=== PATIENT | female | born 1940 | race Caucasian/White ===

== ENCOUNTER 2019-06-15 09:01 | Day surgery (SDC) | payer BC, OTHER ==
[2019-06-14 12:52] VITALS: BMI 19.2
[~2019-06-15 09:01] MED LIST: ACETAMINOPHEN 325 MG TABLET (FP) PO PRN
[2019-06-15] MEDS ORDERED: OFLOXACIN 0.3% OPHTHALMIC SOLUTION 5 ML BOTTLE ONE (09:40)
[2019-06-15] MEDS ORDERED: CYCLOPENTOLATE HCL 1% OPHTH SOLN 2 ML BOTTLE ONE (09:40)
[2019-06-15] MEDS ORDERED: KETOROLAC TROMETHAMINE 0.5% EYE DROP 1 DROP DROPS ONE (09:41)
[2019-06-15] MEDS ORDERED: PHENYLEPHRINE 2.5% OPHTH SOLN 15 ML BOTTLE ONE (09:41)
[2019-06-15] MEDS ORDERED: TROPICAMIDE 1% OPHTH SOLN 15 ML BOTTLE ONE (09:41)
[2019-06-15] MEDS: TROPICAMIDE 1% OPHTH SOLN 15 ML BOTTLE OP SCH ×3 (09:45→10:08)
[2019-06-15] MEDS: KETOROLAC TROMETHAMINE 0.5% EYE DROP 1 DROP DROPS OP SCH ×3 (09:45→10:06)
[2019-06-15] MEDS: CYCLOPENTOLATE HCL 1% OPHTH SOLN 2 ML BOTTLE OP SCH ×3 (09:45→10:06)
[2019-06-15] MEDS: PHENYLEPHRINE 2.5% OPHTH SOLN 15 ML BOTTLE OP SCH ×3 (09:45→10:06)
[2019-06-15] MEDS: OFLOXACIN 0.3% OPHTHALMIC SOLUTION 5 ML BOTTLE OP SCH ×2 (09:45→09:55)
[2019-06-15] MEDS ORDERED: OFLOXACIN 0.3% OPHTHALMIC SOLUTION 5 ML BOTTLE OP ONE (10:06)
[2019-06-15] MEDS ORDERED: EPINEPHrine/PF 1 MG/1 ML (1:1,000) AMPULE ONE (10:41)
[2019-06-15] MEDS ORDERED: LIDOCAINE HCL/PF 1% SDV 5ML VIAL ONE (10:42)
[2019-06-15] MEDS ORDERED: TETRACAINE 0.5% OPHTH SOLN 2 ML BOTTLE ONE (10:42)
[2019-06-15] MEDS ORDERED: TRYPAN BLUE 0.5 ML DISP.SYRIN ONE (10:43)
[2019-06-15] MEDS ORDERED: TETRACAINE 0.5% OPHTH SOLN 2 ML BOTTLE OS ONE (10:56)
[2019-06-15] MEDS ORDERED: POVIDONE-IODINE 5% OPHTHALMIC PREP 30 ML SOLUTION OS ONE (10:57)
[2019-06-15] MEDS ORDERED: MIDAZOLAM HCL 2 MG/2 ML SINGLE DOSE VIAL ONE (10:58)
[2019-06-15] MEDS ORDERED: CHONDROITIN SU A/HYALUR SOD 1 KIT IO ONE (11:06)
[2019-06-15] MEDS ORDERED: LIDOCAINE HCL 1% PRESERVATIVE FREE - 30ML VIAL IO ONE (11:06)
[2019-06-15] MEDS ORDERED: HYALURONATE SODIUM 14 MG/ML DISP.SYRIN IO ONE (11:06)
[2019-06-15] MEDS ORDERED: BSS (NA/CA/MG/K) BALANCED SALT SOLUTION OPHTH SOLN 15 ML BOTTLE OS ONE (11:06)
[2019-06-15] MEDS ORDERED: EPINEPHrine/PF 1 MG/1 ML (1:1,000) AMPULE SQ ONE (11:13)
[2019-06-15] MEDS ORDERED: CHONDROITIN SU A/HYALUR SOD 1 KIT ONE (13:00)
--- NOTE | 2019-06-15 13:38 | OP ---
DATE OF OPERATION: DATE OF DICTATION: 06/15/2019 PREOPERATIVE DIAGNOSIS: Mature cataract, left eye. POSTOPERATIVE DIAGNOSIS: Mature cataract, left eye. PROCEDURE: Phacoemulsification of left cataract with posterior chamber intraocular lens implantation, the lens used [id number], 17.0-diopter power, serial number [id number]. ANESTHESIA: Topical, MAC. COMPLICATIONS: None. PROCEDURE: The patient was brought to the operating room and correctly identified along with the operative site as well as the correct intraocular lens prather. She was then prepped and draped in the usual sterile fashion including 5% Betadine solution in the conjunctival sac and an eyelid drape. An eyelid speculum was then placed into the left eye. A paracentesis port was created. Preservative-free lidocaine 1%, 0.5 mL, was given intracamerally. Viscoelastic was then placed into the anterior chamber and a temporal clear corneal wound was created. A continuous circular capsulorrhexis was performed. The nucleus was then hydrodissected with BSS. The nucleus was then grooved with phacoemulsification. The lens was noted to be dense and a significant amount of energy was required to create a cruciate groove within the cataract. Each piece was then cracked and removed with phacoemulsification employing a [id number] approach as well as horizontal chopping. Care was made to irrigate the phaco tip to try to prevent any wound burn. The pieces were completely removed and cortical material was then irrigated and aspirated from the eye. A small wound burn was noted, however, in the clear corneal wound. Viscoelastic was injected to inflate the capsular bag. The lens was injected into the capsular bag. The wound was stromal irrigated and irrigation-aspiration was performed of the viscoelastic. The anterior chamber was not stable despite trying to repressurize the eye. A single 10-0 nylon suture was placed at the area of the wound burn. The anterior chamber was once again reformed and this time all wounds were tested and found to be watertight. The intraocular lens was noted to be well centered and covered by the anterior capsular border. Topical Vancomycin given, the eye patched and shielded and the patient discharged from the operating room in a stable condition. JOE PRUETT M.D. [id number]
[2019-06-15 14:36] VITALS: TEMP 97.9
[2019-06-15 14:50] VITALS: BP 110/52; PULSE 63
== END 2019-06-15 12:40 | disposition home or self-care (01) ==
LOC: JASU-SURG 09:01
PROVIDERS: ATTEND Ophthalmology
PROC: 08RK3JZ Replacement of Left Lens with Synthetic Substitute, Percutaneous Approach (ICD-10-PCS; principal; 2019-06-15 11:00)
DX: H26.8 Other specified cataract (principal); T26.12XA Burn of cornea and conjunctival sac, left eye, initial encounter; Y92.538 Other ambulatory health services establishments as the place of occurrence of the external cause

== ENCOUNTER 2023-12-29 08:09 | Emergency (ER) | payer OTHER, BC ==
[2023-12-29 08:35] VITALS: RESP 16; BMI 21.4
[2023-12-29] MEDS ORDERED: ACETAMINOPHEN INJECTION 100 ML IVPB ONE (08:53)
[2023-12-29] MEDS: ACETAMINOPHEN 1000 MG/100 ML BAG IVPB ONE (09:10)
[2023-12-29 09:25] LABS: BASO % 0.4 % (0-2.0); EOS % 0.7 % (0-4.5); HEMATOCRIT 45.1 % (32.4-45.2); HEMOGLOBIN 15.5 GM/dL (10.7-15.3); LYMPH % 10.8 % (8-40); MCH 29.9 pg (25.7-33.7); MCHC 34.3 g/dl (32.0-36.0); MEAN CELL VOLUME 87.1 fl (80-96); MEAN PLT VOLUME 8.3 fl (7.5-11.1); MONO % 3.1 % (3.8-10.2); PLATELET COUNT 305 10^3/uL (134-434); RBC 5.17 M/mm3 (3.60-5.2); RDW 13.5 % (11.6-15.6); WHITE BLOOD COUNT 12.6 K/mm3 (4.0-10.0)
[2023-12-29 09:33] LABS: INR 1.01 (0.83-1.09); PROTHROMBIN TIME (PATIENT) 11.7 SEC (9.7-13.0)
[2023-12-29 09:36] LABS: ACTIVATED PTT 28.9 SECONDS (25.2-36.5)
[2023-12-29 09:47] LABS: POTASSIUM 4.3 mmol/L (3.5-5.1)
[2023-12-29 09:49] LABS: CALCIUM 9.3 mg/dL (8.5-10.1)
[2023-12-29 09:50] LABS: ALBUMIN 3.8 g/dl (3.4-5.0); BLOOD UREA NITROGEN 17.9 mg/dL (7-18)
[2023-12-29 09:53] LABS: CREATININE 0.8 mg/dL (0.55-1.3); PHOSPHOROUS 2.9 mg/dL (2.5-4.9)
[2023-12-29 09:54] LABS: BILIRUBIN,TOTAL 0.5 mg/dL (0.2-1)
[2023-12-29 09:55] LABS: TOT PROT 6.9 g/dl (6.4-8.2)
[2023-12-29] MEDS ORDERED: DIPHTH,PERTUSS(ACELL),TET 0.5 ML DISP.SYRIN IM ONE (12:02)
[2023-12-29] MEDS: DIPHTH,PERTUSS(ACELL),TET 0.5 ML DISP.SYRIN IM ONE (12:09)
[2023-12-29] MEDS ORDERED: LIDOCAINE HCL 2% (20ML MULTI-DOSE VIAL) ONE (12:46)
[2023-12-29] MEDS: LIDOCAINE HCL 2% (20ML MULTI-DOSE VIAL) SQ ONE (13:07)
[2023-12-29 13:45] VITALS: BP 116/63; PULSE 92; TEMP 97.5
== END 2023-12-29 14:05 | disposition short-term general hospital (02) ==
LOC: JER 08:09
PROC: 3E033NZ Introduction of Analgesics, Hypnotics, Sedatives into Peripheral Vein, Percutaneous Approach (ICD-10-PCS; principal; 2023-12-29)
PROC: 3E0234Z Introduction of Serum, Toxoid and Vaccine into Muscle, Percutaneous Approach (ICD-10-PCS; 2023-12-29)
DX: S52.501A Unspecified fracture of the lower end of right radius, initial encounter for closed fracture (principal); S02.642A Fracture of ramus of left mandible, initial encounter for closed fracture; S01.81XA Laceration without foreign body of other part of head, initial encounter; R51.9 Headache, unspecified; W01.0XXA Fall on same level from slipping, tripping and stumbling without subsequent striking against object, initial encounter; Z20.822 Contact with and (suspected) exposure to COVID-19
CPT/HCPCS: 0241U-QW; 36415; 70450-TC; 70486-TC; 71045-TC-FY; 72125-TC; 73070-TC-RT-FY; 73090-TC-RT-FY; 73110-TC-RT-FY; 73130-TC-RT-FY; 80053; 83735; 84100; 84484; 85025; 85610; 85730; 86850; 86900; 86901; 90471; 90715; 93005; 93010; 96374; 99285-25; J0131